=== PATIENT | female | born 1950 | race Two or more races ===

== ENCOUNTER 2023-12-04 17:10 | Emergency (ER) | payer MEDICAID ==
[~2023-12-04] VITALS: Ht 149.9 cm; Wt 75.2 kg
[2023-12-04 18:35] VITALS: BP 133/70; PULSE 80; RESP 19; TEMP 98.7; O2SAT 97
[2023-12-04] MEDS ORDERED: GABA-1250 PO (18:58)
[2023-12-04] MEDS: KETOROLAC TROMETH 30 MG/ML 1ML VIAL IM ONE (18:59)
== END 2023-12-04 19:07 | disposition home or self-care (01) ==
LOC: ER 17:10
DX: G62.9 Polyneuropathy, unspecified (principal); E11.9 Type 2 diabetes mellitus without complications; I10 Essential (primary) hypertension
CPT/HCPCS: 96372; 99283; J1885

== ENCOUNTER → 2023-12-30 | Outpatient (CLI) | payer MEDICAID ==
[~2023-12-30] MED LIST: GABA-1250 PO
[2023-12-30 09:16] LABS: Hematocrit 38.8 % (36.0-46.0); Hemoglobin 12.9 g/dL (12.2-16.2); Mean Corpuscular Hemoglobin 30.7 pg (28.0-32.0); Mean Corpuscular Hgb Conc. 33.3 g/dL (32.0-36.0); Mean Corpuscular Volume 92.3 fL (80.0-100.0); Red Blood Cells 4.21 10^6/uL (4.0-5.20); Red Cell Distribution Width 13.5 % (11.8-14.3); White Blood Cell 8.1 10^3/uL (4.4-10.8)
[2023-12-30 09:20] LABS: Urine Blood TRACE /uL (Negative); Urine Clarity Clear (Clear); Urine Color Colorless (Yellow); Urine Protein, UAD Negative (Negative); Urine Specific Gravity 1.012 (1.001-1.035); Urine Urobilinogen Normal (Negative)
[2023-12-30 09:27] LABS: Basophils % (manual) 0 (0.0-2.0); Blast Cells 0; Metamyelocytes % 0; Myelocytes % 0; Promyelocytes % 0; Reactive Lymphocytes 0
[2023-12-30 09:45] LABS: Creatinine, Urine 37.84 mg/dL (30.0-125.0)
[2023-12-30 09:49] LABS: Erythrocyte Sedimentation Rate 16 mm/hr (0-20)
[2023-12-30 09:50] LABS: Alanine Aminotransferase 18 U/L (7-40); Albumin 4.2 g/dL (3.2-4.8); Alkaline Phosphatase 87 U/L (46-116); Anion Gap 7 (5-15); Aspartate Aminotransferase 9 U/L (13-40); BUN/Creatinine Ratio 13.3 (10.0-20.0); Blood Urea Nitrogen 12 mg/dL (9-23); Calcium 10.1 mg/dL (8.5-10.1); Carbon Dioxide 24 mmol/L (20-30); Chloride 106 mmol/L (98-107); Cholesterol 188 mg/dL (< 200); Glucose 131 mg/dL (74-106); HDL Cholesterol 44 mg/dL (40-59); LDL Cholesterol 126 mg/dL (< 100); Potassium 4.4 mmol/L (3.5-5.1); Sodium 137 mmol/L (136-145); Triglycerides 213 mg/dL (< 150)
[2023-12-30 09:51] LABS: Bilirubin, Total 0.4 mg/dL (0.2-1.0)
[2023-12-30 09:52] LABS: Band Neutrophils % (manual) 2; Eosinophils % (manual) 4 (0-7); Lymphocytes % (manual) 25 (10.0-50.0); Monocytes % (manual) 5 (0-12); Platelet Estimate Adequate
[2023-12-31 08:06] LABS: Rheumatoid Arthritis Factor <10.0 IU/mL (<14.0)
[2023-12-31 11:07] LABS: Anti-Nuclear Antibody Direct Negative (Negative)
== END | disposition home or self-care (01) ==
LOC: LAB 08:44
PROVIDERS: ATTEND Student in an Organized Health Care Education/Training Program
DX: E11.9 Type 2 diabetes mellitus without complications (principal); I10 Essential (primary) hypertension; E55.9 Vitamin D deficiency, unspecified; D64.9 Anemia, unspecified
CPT/HCPCS: 36415; 80053; 80061; 81003; 82043; 82306; 82570; 82607; 83036; 84443; 85007; 85027; 85652; 86038; 86431

== ENCOUNTER 2024-02-23 10:00 | Emergency (ER) | payer MEDICAID ==
[~2024-02-23] VITALS: Ht 152.4 cm; Wt 75.8 kg
[2024-02-23 16:16] VITALS: BP 139/88; PULSE 79; RESP 16; TEMP 97.7; O2SAT 99
== END 2024-02-23 18:35 | disposition home or self-care (01) ==
LOC: ER 10:02
DX: S92.255A Nondisplaced fracture of navicular [scaphoid] of left foot, initial encounter for closed fracture (principal); E11.9 Type 2 diabetes mellitus without complications; I10 Essential (primary) hypertension; W18.09XA Striking against other object with subsequent fall, initial encounter; Y93.01 Activity, walking, marching and hiking; Y92.89 Other specified places as the place of occurrence of the external cause; Y99.8 Other external cause status
CPT/HCPCS: 29515; 73562; 73610

== ENCOUNTER → 2024-04-27 | Outpatient (CLI) | payer MEDICAID ==
[2024-04-27 10:58] LABS: Basophils # (auto) 0.1 10 ^3/uL (0-0.2); Basophils % (auto) 0.9 % (0.0-2.0); Eosinophils # (auto) 0.3 10 ^3/uL (0-0.8); Hematocrit 38.7 % (36.0-46.0); Hemoglobin 13.1 g/dL (12.2-16.2); Lymphocytes # (auto) 1.3 10 ^3/uL (0.4-5.4); Lymphocytes % (auto) 20.9 % (10.0-50.0); Mean Corpuscular Hemoglobin 30.8 pg (28.0-32.0); Mean Corpuscular Hgb Conc. 33.9 g/dL (32.0-36.0); Mean Corpuscular Volume 90.9 fL (80.0-100.0); Monocytes # (auto) 0.3 10 ^3/uL (0-1.3); Monocytes % (auto) 5.6 % (0.0-12.0); Neutrophils # (auto) 4.2 10 ^3/uL (1.6-8.6); Neutrophils % (auto) 67.6 % (37.0-80.0); Platelet Count (auto) 258 10^3/uL (140-450); Red Blood Cells 4.25 10^6/uL (4.0-5.20); Red Cell Distribution Width 13.4 % (11.8-14.3); White Blood Cell 6.2 10^3/uL (4.4-10.8)
[2024-04-27 11:22] LABS: Alanine Aminotransferase 18 U/L (7-40); Albumin 4.5 g/dL (3.2-4.8); Alkaline Phosphatase 72 U/L (46-116); Anion Gap 8 (5-15); Aspartate Aminotransferase 10 U/L (13-40); BUN/Creatinine Ratio 24.1 (10.0-20.0); Blood Urea Nitrogen 19 mg/dL (9-23); Calcium 10.2 mg/dL (8.7-10.4); Carbon Dioxide 25 mmol/L (20-31); Chloride 106 mmol/L (98-107); Glucose 143 mg/dL (74-106); Potassium 4.2 mmol/L (3.5-5.1); Sodium 139 mmol/L (136-145)
[2024-04-27 11:23] LABS: Total Protein 7.8 g/dL (5.7-8.2)
[2024-04-27 11:35] LABS: Bilirubin, Total 0.5 mg/dL (0.2-1.0)
== END | disposition home or self-care (01) ==
LOC: LAB 10:18
PROVIDERS: ATTEND Student in an Organized Health Care Education/Training Program
DX: I10 Essential (primary) hypertension (principal); E11.9 Type 2 diabetes mellitus without complications
CPT/HCPCS: 36415; 80053; 83036; 84443; 85025

== ENCOUNTER 2025-04-05 08:48 | Outpatient (CLI) | payer MEDICAID ==
[2025-04-05 09:38] LABS: Hematocrit 39.0 % (36.0-46.0); Hemoglobin 13.4 g/dL (12.2-16.2); Mean Corpuscular Hemoglobin 30.7 pg (28.0-32.0); Mean Corpuscular Volume 89.7 fL (80.0-100.0); Nucleated Red Blood Cells % 0.0 %
[2025-04-05 10:05] LABS: Protein, Urine 63.6 mg/dL (1-14)
[2025-04-05 10:09] LABS: Microalb/Creat Ratio, Urine 509.0
[2025-04-05 10:11] LABS: Albumin 4.6 g/dL (3.2-4.8); Alkaline Phosphatase 101 U/L (46-116); Anion Gap 10 (5-15); BUN/Creatinine Ratio 14.6 (10.0-20.0); Blood Urea Nitrogen 15 mg/dL (9-23); Calcium 9.9 mg/dL (8.7-10.4); Carbon Dioxide 27 mmol/L (20-31); Chloride 102 mmol/L (98-107); Potassium 4.4 mmol/L (3.5-5.1); Sodium 139 mmol/L (136-145)
[2025-04-05 10:12] LABS: Bilirubin, Total 0.6 mg/dL (0.2-1.0)
[2025-04-05 10:19] LABS: Alanine Aminotransferase 57 U/L (7-40); Glucose 213 mg/dL (74-106); Total Protein 8.2 g/dL (5.7-8.2)
== END 2025-04-05 17:00 | disposition home or self-care (01) ==
LOC: LAB 08:48
PROVIDERS: ATTEND Student in an Organized Health Care Education/Training Program
DX: I10 Essential (primary) hypertension (principal); E11.9 Type 2 diabetes mellitus without complications; R35.0 Frequency of micturition
CPT/HCPCS: 36415; 80053; 82043; 82570; 83036; 84156; 84443; 85025